=== PATIENT | female | born 1950 | race Caucasian/White ===

== ENCOUNTER 2020-03-21 16:22 | Emergency (ER) | payer MEDICARE, OTHER ==
[~2020-03-21] VITALS: Ht 157.5 cm; Wt 69.1 kg
[2020-03-21 16:25] VITALS: BP 150/73
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
--- NOTE | 2020-03-21 17:03 | NUR ---
PT TO CT VIA [facility]
== END 2020-03-21 18:11 | disposition home or self-care (01) ==
LOC: ED 18:10
DX: S16.1XXA Strain of muscle, fascia and tendon at neck level, initial encounter (principal); S09.90XA Unspecified injury of head, initial encounter; W07.XXXA Fall from chair, initial encounter; Y93.89 Activity, other specified; Y92.009 Unspecified place in unspecified non-institutional (private) residence as the place of occurrence of the external cause; Y99.8 Other external cause status
CPT/HCPCS: 70450; 72125; 99285

== ENCOUNTER 2020-07-01 09:59 | Outpatient (CLI) | payer MEDICARE | END 2020-07-01 23:59 | disposition home or self-care (01) | LOC: CFH 09:59 | DX: Z12.31 Encounter for screening mammogram for malignant neoplasm of breast (principal); M85.88 Other specified disorders of bone density and structure, other site; Z78.0 Asymptomatic menopausal state | CPT/HCPCS: 77063; 77067; 77080 ==